=== PATIENT | male | born 1930 | race Caucasian/White ===

== ENCOUNTER 2017-11-05 19:35 | Observation (INO) ==
[2017-11-05] MEDS ORDERED: SALINE FLUSH 10ml SYRINGE IVF PRN (20:00)
--- NOTE | 2017-11-05 20:05 | Emergency Department Report ---
Weakness HPI - General Chief complaint: Weakness Stated complaint: Cough, Fever Time Seen by Provider: 11/05/17 19:42 Source: patient Mode of arrival: EMS Limitations: no limitations - History of Present Illness HPI Narrative: Pt presents with cough, fever, and weakness which started yesterday. Pt reports congestion with non productive cough. He states he sat in his recliner most of the afternoon and weakness has become progressively worse since that time. Pt arrived EMS as and daughter were concerned they could not get pt to car. Pt states he has been to weak to use his walker today. Pt denies chest pain, SOA , N/V/D. He does note a decrease in appetite. MD Complaint: generalized weakness, difficulty walking Onset (ago): hour(s) Duration: constant Location: generalized Migration: none Relieving factors: none Exacerbating factors: none Associated symptoms: fever/chills, loss of appetite, other (cough) - Related Data Home Medications Medication Instructions Recorded Confirmed Acetaminophen [Tylenol] 500 mg PO TID 11/05/17 11/05/17 Ascorbate Calcium [Vitamin C] 500 mg PO DAILY 11/05/17 11/05/17 Aspirin Chewable [ASA] 81 mg PO DAILY 11/05/17 11/05/17 Atenolol [Tenormin] 50 mg PO BID 11/05/17 11/05/17 Cetirizine [Zyrtec] 10 mg PO PRN PRN 11/05/17 11/05/17 Cholecalciferol [Vit. D-3] 2,000 unit PO DAILY 11/05/17 11/05/17 Clopidogrel [Plavix] 75 mg PO DAILY 11/05/17 11/05/17 Coenzyme Q-10 [Co Q-10] 1,000 mg PO BID 11/05/17 11/05/17 Doxazosin Mesylate [Cardura] 2 mg PO HS 11/05/17 11/05/17 Fluticasone Nasal [place] [Flonase] 1 spray EA NOSTRIL BID 11/05/17 11/05/17 Losartan [Cozaar] 50 mg PO BID 11/05/17 11/05/17 Metformin [Glucophage] 1,000 mg PO BIDWM 11/05/17 11/05/17 Nitroglycerin 0.4 mg SL PRN PRN 11/05/17 11/05/17 Ranitidine [Zantac] 150 mg PO BID 11/05/17 11/05/17 Simvastatin 20 mg PO HS 11/05/17 11/05/17 Tolterodine 2 mg [Detrol] 2 mg PO DAILY 11/05/17 11/05/17 Previous Rx's Medication Instructions Recorded Benzonatate [Tessalon Perles] 200 mg PO TID PRN #20 cap 11/06/17 Guaifenesin LA [Mucinex LA] 1,200 mg PO BID #10 tab 11/06/17 Oseltamivir Cap [Tamiflu] 75 mg PO BID #9 cap 11/06/17 Allergies Allergy/AdvReac Type Severity Reaction Status Date / Time atorvastatin Allergy Unknown Verified 11/05/17 20:05 bacitracin Allergy Unknown CAUSES Verified 11/05/17 20:05 INFLAMMATION neomycin Allergy Unknown Unverified 11/08/17 13:12 polymyxin B Allergy Unknown CAUSES Verified 11/05/17 20:05 INFLAMMATION pravastatin Allergy Unknown Verified 11/05/17 20:05 rosuvastatin Allergy Unknown Verified 11/05/17 20:05 simvastatin Allergy Unknown Verified 11/05/17 20:05 neomycin sulfate Allergy Unknown CAUSES Uncoded 01/20/16 09:04 INFLAMMATION Review of Systems All systems: reviewed and negative except as stated Constitutional: Reports: as per HPI Cardiovascular: Reports: as per HPI Respiratory: Reports: as per HPI Gastrointestinal: Reports: as per HPI Musculoskeletal: Reports: as per HPI Neurological: Reports: as per HPI [facility] Patient Stated Medical History Myocardial Infarction Yes: 2 [facility] Medical History (Last Reviewed 04/02/17 @ 09:41 by Luz High RN) HTN (hypertension) (Acute Medical) Myocardial infarction (Resolved Medical) Basal cell adenocarcinoma (Acute Medical) Hypercholesterolemia (Acute Medical) Arthritis (Chronic Medical) Diabetes mellitus (Chronic Medical) Muscle disorder (Chronic Medical) of back Surgical History: Bilateral upper blepharoplasty: 09/12/2016. Cardiac stents x 3: 2014. Back surgery x 2: 1976 & 2010. CABG: Age 68. Mitral valve repair: 1989. Cholecystectomy: mid . Cataracts, bilateral: 1994. Carpal tunnel release x 2: 1959. Appendectomy: 1941 age 10. Basal cell carcinoma, right nose , excision, 2009. Colonoscopy with polyps, 2016 Family History: Family History Mother Diabetes mellitus Father Heart disease - Social History Smoking status: Former smoker Physical Exam - Limitations Limitations: no limitations - General General appearance: alert, in no apparent distress - Normal Exams: Head:: Normocephalic without trauma Eyes:: Pupils are PERRLA w/ EOMI Neck:: Full range of motion, without adenopathy Cardiovascular:: Regular rate and rhythm, without murmur or gallop, Pulses 2+ all extremities, capillary refill, <2 seconds all extremities Abdomen:: Bowel sounds positive, soft, non-tender, non-distended Musculoskeletal:: No tenderness, or deformity noted, good range of motion, all extremities Integumentary:: No rashes Neurological:: Patient is alert, and oriented, cranial nerves, motor/sensory/ cerebellar, exams w/o gross deficits, to observation - Expanded Respiratory Exam Location: Left: decreased breath sounds, Right: wheezes, decreased breath sounds , Lower: wheezes, decreased breath sounds Course Vital Signs Pulse Rate 86 11/05/17 19:45 Blood Pressure 155/70 H 11/05/17 19:45 Pulse Oximetry 94 11/05/17 19:45 Temperature 99.6 F 11/06/17 16:00 Pulse Rate 59 L 11/06/17 16:00 Respiratory Rate 24 11/06/17 16:00 Blood Pressure 134/57 11/06/17 16:00 Pulse Oximetry 93 11/06/17 16:00 Weakness - MDM Narrative Medical decision making narrative: Labs and xray reviewed. Pt remains weak. Family voices concern that they were unable to get him out of his chair. Pt normally ambulates with a walker without difficulty. Findings and issues discussed with Dr Garcia who will admit. Plan discussed with pt and family, who are grateful for admission. - Differential Diagnosis Differential diagnosis: Likely: anemia, hypoglycemia, sepsis (influenza, syncope ) - Lab Data Attestation: I reviewed the patient's lab results. Result diagrams: 11/06/17 05:35 11/06/17 05:36 Lab Results 11/05/17 11/05/17 11/05/17 Range/Units 19:20 19:20 19:55 WBC 8.8 (4.5-11.0) T/MM3 RBC 4.42 L (4.50-5.90) M/MM3 Hgb 13.7 (13.5-17.5) GM/DL Hct 40.3 L (41-53) % MCV 91.2 (80-100) UM3 MCH 31.0 (26-34) UUG MCHC 34.0 (31-37) GM/DL RDW Std Deviation 42.1 (36.9-50.2) FL Plt Count 158 (130-400) T/MM3 MPV 10.1 (9.4-12.4) UM3 Immature Gran % (Auto) Not performed Neut % (Auto) Not performed Lymph % (Auto) Not performed [place] % (Auto) Not performed Eos % (Auto) Not performed Baso % (Auto) Not performed Neut # (Auto) Not performed Lymph # (Auto) Not performed [place] # (Auto) Not performed Eos # (Auto) Not performed Baso # (Auto) Not performed Abs Immat Gran (auto) Not performed Neutrophils % (Manual) 88.0 H (33-66) % Lymphocytes % (Manual) 5.0 L (23-45) % Reactive Lymphs % 1.0 H (0-0) % Monocytes % (Manual) 6.0 (0-9.0) % Neutrophils # (Manual) 7.7 (1.8-7.7) T/MM3 Lymphocytes # (Manual) 0.4 L (1-4.8) T/MM3 Abs React Lymphs (Man) 0.1 H (0-0) T/MM3 Monocytes # (Manual) 0.5 (0-0.8) T/MM3 RBC Morph Comment Normal Turbidity < 20 (0-20) Sodium 138 (134-144) MEQ/L Potassium 4.4 (3.6-5) MEQ/L Chloride 103 (98-107) MEQ/L Carbon Dioxide 20 L (22-30) MEQ/L Anion Gap 15 (5-15) MEQ/L BUN 17.0 (9-20) MG/DL Creatinine 0.8 (0.8-1.5) MG/DL GFR Calculation 92 BUN/Creatinine Ratio 21 (6-26) RATIO Glucose 137 H (75-110) MG/DL Calculated Osmolality 270 (261-280) MOSM/KG Calcium 9.6 (8.4-10.2) MG/DL Total Bilirubin 0.50 (0.20-1.30) MG/DL Icterus Index < 2 (0-7) AST 23 (17-59) U/L ALT 25 (21-72) U/L Alkaline Phosphatase 54 (38-126) U/L Total Protein 7.7 (6.3-8.2) G/DL Albumin 4.6 (3.5-5.0) G/DL Globulin 3.1 (2.4-3.6) G/DL Albumin/Globulin Ratio 1.5 (1.1-2.2) RATIO Plasma Lactate (0.6-2.2) MMOL/L Specimen Hemolysis < 15 (0-25) Influenza Type A (PCR) Positive A* (Negative) Influenza Type B (PCR) Negative (Negative) 11/05/17 Range/Units 21:14 WBC (4.5-11.0) T/MM3 RBC (4.50-5.90) M/MM3 Hgb (13.5-17.5) GM/DL Hct (41-53) % MCV (80-100) UM3 MCH (26-34) UUG MCHC (31-37) GM/DL RDW Std Deviation (36.9-50.2) FL Plt Count (130-400) T/MM3 MPV (9.4-12.4) UM3 Immature Gran % (Auto) Neut % (Auto) Lymph % (Auto) [place] % (Auto) Eos % (Auto) Baso % (Auto) Neut # (Auto) Lymph # (Auto) [place] # (Auto) Eos # (Auto) Baso # (Auto) Abs Immat Gran (auto) Neutrophils % (Manual) (33-66) % Lymphocytes % (Manual) (23-45) % Reactive Lymphs % (0-0) % Monocytes % (Manual) (0-9.0) % Neutrophils # (Manual) (1.8-7.7) T/MM3 Lymphocytes # (Manual) (1-4.8) T/MM3 Abs React Lymphs (Man) (0-0) T/MM3 Monocytes # (Manual) (0-0.8) T/MM3 RBC Morph Comment Turbidity (0-20) Sodium (134-144) MEQ/L Potassium (3.6-5) MEQ/L Chloride (98-107) MEQ/L Carbon Dioxide (22-30) MEQ/L Anion Gap (5-15) MEQ/L BUN (9-20) MG/DL Creatinine (0.8-1.5) MG/DL GFR Calculation BUN/Creatinine Ratio (6-26) RATIO Glucose (75-110) MG/DL Calculated Osmolality (261-280) MOSM/KG Calcium (8.4-10.2) MG/DL Total Bilirubin (0.20-1.30) MG/DL Icterus Index (0-7) AST (17-59) U/L ALT (21-72) U/L Alkaline Phosphatase (38-126) U/L Total Protein (6.3-8.2) G/DL Albumin (3.5-5.0) G/DL Globulin (2.4-3.6) G/DL Albumin/Globulin Ratio (1.1-2.2) RATIO Plasma Lactate 2.4 H (0.6-2.2) MMOL/L Specimen Hemolysis (0-25) Influenza Type A (PCR) (Negative) Influenza Type B (PCR) (Negative) - Radiology Data Attestation: I reviewed the patient's radiology results. Disposition Clinical Impression: Influenza A Disposition: 02 To [facility] Condition: Stable - Seen By: graham
[2017-11-05] MEDS ORDERED: ACETAMINOPHEN 500 MG TABLET PO PRN (21:30)
[2017-11-05] MEDS ORDERED: NITROGLYCERIN 0.4 MG SUBLINGUAL TABLET SL PRN (22:59)
[2017-11-05] MEDS ORDERED: ACETAMINOPHEN 325 MG TABLET PO PRN (23:59)
[2017-11-05] MEDS ORDERED: INSULIN ASPART 100unit/ml INJECTION SQ PRN (23:59)
[2017-11-05] MEDS ORDERED: DOCUSATE SODIUM 100 MG CAPSULE PO PRN (23:59)
[2017-11-05] MEDS ORDERED: PROMETHAZINE 25 MG INJECTION IVP PRN (23:59)
[2017-11-05] MEDS ORDERED: ONDANSETRON 4 MG/2 ML INJECTION IVP PRN (23:59)
[2017-11-06 00:24] VITALS: BMI 25.8
[2017-11-06] MEDS: LR 1,000 ML IV SCH ×2 (00:26→10:37)
--- NOTE | 2017-11-06 00:38 | History & Physical Report ---
History of Present Illness Date: 11/06/17 Chief complaint: Flu HPI: The pt is a 86 yo male who started having cough, congestion, and nausea 2 days ago. Today he slept all day and then was profoundly weak and couldn't get our of his recliner. EMS was called and he was brought to the ER for evaluation. Presently he denies any pain, SOB, CP, rash, vomiting, diarrhea, He did receive his flu shot this season. He has a walker at home which he does not use. Recently saw he manager appointment in the office last week. Review of Systems All systems PM: 10-point ROS was reviewed, no additional remarkable complaints except (what is listed in the HPI) - Constitutional Constitutional: Present: anorexia, chills, daytime sleepiness, fatigue, fever(s) , weakness - EENMT Eyes: Present: blurry vision Mouth/Throat: Present: sore throat, scratchy throat - Cardiovascular Cardiovascular: Absent: chest pain, palpitations - Respiratory Respiratory: Present: cough. Absent: dyspnea, hemoptysis - Gastrointestinal Gastrointestinal: Present: nausea. Absent: abdominal pain, diarrhea, melena Past Medical History Patient Stated Medical History Myocardial Infarction Yes: 2 Clinic Medical History (Last Reviewed 04/02/17 @ 09:41 by Luz [facility] RN) HTN (hypertension) (Acute Medical) Myocardial infarction (Resolved Medical) Basal cell adenocarcinoma (Acute Medical) Hypercholesterolemia (Acute Medical) Arthritis (Chronic Medical) Diabetes mellitus (Chronic Medical) Muscle disorder (Chronic Medical) of back Surgical History: Bilateral upper blepharoplasty: 09/12/2016. Cardiac stents x 3: 2014. Back surgery x 2: 1976 & 2010. CABG: Age 68. Mitral valve repair: 1989. Cholecystectomy: mid . Cataracts, bilateral: 1994. Carpal tunnel release x 2: 1959. Appendectomy: 194 age 10. Basal cell carcinoma, right nose , excision, 2009. Colonoscopy with polyps, 2016 Family History: Family History Mother Diabetes mellitus Father Heart disease Family History Updates: reviewed - Social History Smoking status: Former smoker Substance use type: does not use Alcohol intake frequency: does not drink Housing: house Household members: spouse Current occupational status: retired Medications Home Medications Medication Instructions Recorded Confirmed Type Acetaminophen [Tylenol] 500 mg PO TID 11/05/17 11/05/17 History Ascorbate Calcium [Vitamin C] 500 mg PO DAILY 11/05/17 11/05/17 History Aspirin Chewable [ASA] 81 mg PO DAILY 11/05/17 11/05/17 History Atenolol [Tenormin] 50 mg PO BID 11/05/17 11/05/17 History Cetirizine [Zyrtec] 10 mg PO PRN PRN 11/05/17 11/05/17 History Cholecalciferol [Vit. D-3] 2,000 unit PO DAILY 11/05/17 11/05/17 History Clopidogrel [Plavix] 75 mg PO DAILY 11/05/17 11/05/17 History Coenzyme Q-10 [Co Q-10] 1,000 mg PO BID 11/05/17 11/05/17 History Doxazosin Mesylate [Cardura] 2 mg PO HS 11/05/17 11/05/17 History Fluticasone Nasal [place] [Flonase] 1 spray EA NOSTRIL BID 11/05/17 11/05/17 History Losartan [Cozaar] 50 mg PO BID 11/05/17 11/05/17 History Metformin [Glucophage] 1,000 mg PO BIDWM 11/05/17 11/05/17 History Nitroglycerin 0.4 mg SL PRN PRN 11/05/17 11/05/17 History Ranitidine [Zantac] 150 mg PO BID 11/05/17 11/05/17 History Simvastatin 20 mg PO HS 11/05/17 11/05/17 History Tolterodine 2 mg [Detrol] 2 mg PO DAILY 11/05/17 11/05/17 History Allergies Allergy/AdvReac Type Severity Reaction Status Date / Time atorvastatin Allergy Unknown Verified 11/05/17 20:05 bacitracin Allergy Unknown CAUSES Verified 11/05/17 20:05 INFLAMMATION polymyxin B Allergy Unknown CAUSES Verified 11/05/17 20:05 INFLAMMATION pravastatin Allergy Unknown Verified 11/05/17 20:05 rosuvastatin Allergy Unknown Verified 11/05/17 20:05 simvastatin Allergy Unknown Verified 11/05/17 20:05 neomycin sulfate Allergy Unknown CAUSES Uncoded 01/20/16 09:04 INFLAMMATION Exam Vital Signs: Temperature 99.3 F 11/06/17 00:15 Pulse Rate 66 11/06/17 00:15 Respiratory Rate 20 11/06/17 00:15 Blood Pressure 118/62 11/06/17 00:15 Pulse Oximetry 98 11/05/17 23:55 Height/Weight/BMI: Height 1.8 m Weight 84.1 kg Body Mass Index 25.8 - Constitutional Present: no acute distress, well nourished - Routine HEENT Exam ENT: Present: mucous membranes moist - Routine Neck Exam Present: supple - Routine Respiratory Exam Present: CTA bilaterally. Absent: rales, respiratory distress, rhonchi - Routine Cardiovascular Exam Present: RRR, no murmur - Routine Abdominal Exam Present: soft, normoactive bowel sounds Results - Labs CBC & Chem 7: 11/06/17 05:35 11/06/17 05:36 Assessment and Plan (1) Influenza A Current visit: Yes Status: Acute (2) CAD (coronary artery disease) Current visit: Yes Status: Acute (3) Diabetes Current visit: Yes Status: Acute (4) GERD (gastroesophageal reflux disease) Current visit: Yes Status: Acute (5) Chronic back pain greater than 3 months duration Current visit: Yes Status: Acute Assessment and Plan: The pt will be started on Tamiflu 75 BID, IV fluids, PT consulted, recheck labs in am, restarted home meds, placed on insulin SS, checking CPK & LA due to weakness, DVT Prophylaxis: SCD's Resuscitation Status: Full Code - Time spent with patient Time with patient PN: 50 minutes - Physician Narrative Physician: Britany Larose MD Narrative: Date: 11/06/17 Time:0830am I have seen and examined the patient. I have reviewed the H&P above and agree. Please see my additions below.-Dr. Larose Primary care physician is Dr. Jostin Schmidt Cover Cutter is Dr. Palencia The patient's is his DPOA Per patient, he is full code CC:generalized weakness and fever HPI: The patient is a very pleasant 86-year-old male who lives at home with his independently at [facility]. He has history of heart disease and diabetes. He states he developed a cough and weakness on the evening of 11/04/2017. He states that yesterday he felt weak, had a cough, fevers and sweats. His appetite was decreased. He was able to eat a little bit of supper and then sat in his recliner. He was not able to get up out of his recliner and EMS was called. He had a fever of 102.2 in the emergency room and was positive for influenza A. He had a lactate of 2.4 indicating severe sepsis. Patient was treated with IV fluids and Tamiflu. He was admitted secondary to generalized weakness and influenza a. He has had headache off and on, especially when he coughs. He denies any neck pain. He denies any generalized achiness. He has chronic low back pain which is unchanged. He denies any chest pains, palpitations or shortness of breath. He does have a mostly dry cough. He states he felt lightheaded yesterday trying to get up out of his chair. He denies any vomiting but has felt nauseated. Has had no diarrhea. He has chronic constipation. He denies any dysuria but notices that he has not been urinating much recently. Patient was admitted last night started on Tamiflu, IV fluids and Tylenol. This morning he states he still feels very weak. His blood sugar is low. Usually has this time but did not have one last night. Past medical history is reviewed from H&P above and agree. Past surgical history is reviewed and agree. Comprehensive review of systems is negative other than the above in history of present illness Family history is reviewed and agree. Social history: The patient was a light smoker but quit "a long time ago". He rarely drinks alcohol. He lives at home with his at [facility] which is independent living. His is OA and he wants to be full code. He states he usually walks without a walker or cane. Medications and allergies are reviewed Physical exam Temperature this morning is 100.9. MAXIMUM TEMPERATURE is 102.2. O2 sat is 93% on room air. Blood pressure lying is 132/61 with a pulse of 70. Sitting blood pressure is 151/59 with a pulse of 74. Standing blood pressure is 174/76 with a pulse of 84. General: The patient is alert and oriented and in no acute distress. He is a good historian. HEENT: Pupils are equal round and reactive, sclerae anicteric, oropharynx is mildly dry Neck: Supple with good range of motion, no lymphadenopathy Chest: Coarse breath sounds anteriorly lying down, with the patient sitting up and after several coughs, lungs are clear. Cardiovascular reveals a regular rate and rhythm without murmur Abdomen: Soft, nontender, and nondistended with positive bowel sounds : No Alexandra Extremities: No clubbing, cyanosis or edema. SCDs are on. Skin: Warm and dry without rashes. Neurologic: No focal deficits, alert and oriented 3 Pertinent lab includes influenza A positive nasal swab, CBC on repeat this morning is normal other than platelets of 121 down from 158. Basic metabolic profile is essentially normal. Lactate on admission was 2.4 and with fluids improved to 1.6. CPK was normal. Liver enzymes last night were normal. Chest x-ray per radiology reveals no acute process. I have also viewed the x- ray and agree Impression Influenza A Severe sepsis-With lactate of 2.4, fever, and influenza Generalized weakness-likely secondary to severe sepsis and influenza Coronary artery disease-stable Diabetes mellitus on metformin Hypertension Chronic low back pain Plan Continue IV fluids. Continue Tamiflu which was initiated last night. PT OT eval for generalized weakness. Hold metformin secondary to recent elevated lactate. Give subcutaneous insulin if needed for hyperglycemia. Discussed with case management today. Hold parameters placed on antihypertensives encased blood pressure is low. Currently blood pressures are not low and the patient is not orthostatic. Hospital Course Summary Disclaimer: The visit summary below is not to be considered part of the above Progress Note.
[2017-11-06] MEDS ORDERED: METFORMIN 1,000 MG TABLET PO SCH (08:00)
[2017-11-06 08:09] VITALS: O2SAT 93
--- NOTE | 2017-11-06 08:40 | XRay Report ---
Indication: cough, weakness PROCEDURE: XR chest 1V: Encounter: Initial Comparison: None. Findings: The patient is status post median sternotomy and cardiac valvular surgery as well as CABG. Heart size is normal. The lungs are clear. There is no focal opacity to suggest atelectasis or pneumonia. No mediastinal or hilar adenopathy. No pleural effusion. There is no significant tortuosity of the descending thoracic aorta. There is no significant degenerative changes of the thoracic spine. IMPRESSION: No acute process. .
[2017-11-06] MEDS ORDERED: FLUTICASONE NASAL SPRAY 50mcg EA NOSTRIL SCH (09:00)
[2017-11-06] MEDS ORDERED: ATENOLOL 50 MG TABLET PO SCH (09:00)
[2017-11-06] MEDS ORDERED: LOSARTAN 50 MG TABLET PO SCH (09:00)
[2017-11-06] MEDS ORDERED: RANITIDINE 150 MG TABLET PO SCH (09:00)
[2017-11-06] MEDS ORDERED: CLOPIDOGREL 75 MG TABLET PO SCH (09:00)
[2017-11-06] MEDS ORDERED: ASPIRIN 81 MG CHEWABLE TABLET PO SCH (09:00)
[2017-11-06] MEDS ORDERED: BENZONATATE 200 MG CAPSULE PO SCH (15:00)
--- NOTE | 2017-11-06 15:46 | Discharge Summary ---
Discharge Information Date of admission: 11/05/17 23:46 Attending Physician: Britany Larose MD Primary care physician: Jostin Schmidt MD Consults: 11/06/17 IRU Screening [Inpatient Rehab Screening] [CONS] Routine - Discharge Diagnosis (1) Influenza A Status: Acute (2) CAD (coronary artery disease) Status: Acute (3) Diabetes Status: Acute (4) GERD (gastroesophageal reflux disease) Status: Acute (5) Chronic back pain greater than 3 months duration Status: Acute Influenza a Severe sepsis Generalized weakness Diabetes mellitus - Laboratory Labs: 11/06/17 05:35 11/06/17 05:36 Lactate on admission was 2.4 and improved to 1.6 after hydration - Radiology Radiology: Chest x-ray showed no acute process. History of Present Illness HPI: The pt is a 86 yo male who started having cough, congestion, and nausea 2 days ago. Today he slept all day and then was profoundly weak and couldn't get our of his recliner. EMS was called and he was brought to the ER for evaluation. Presently he denies any pain, SOB, CP, rash, vomiting, diarrhea, He did receive his flu shot this season. He has a walker at home which he does not use. Recently saw he coremaker in the office last week. Objective Vital signs: Temperature 100.9 F H 11/06/17 08:00 Pulse Rate 83 11/06/17 08:36 Respiratory Rate 20 11/06/17 08:00 Blood Pressure 174/76 H 11/06/17 08:36 Pulse Oximetry 93 11/06/17 08:00 Height/Weight/BMI: Height 1.8 m Weight 86.2 kg Body Mass Index 25.8 Hospital Course This is a general summary of the patient's hospital course. For more details refer to the complete medical record. Hospital course: The patient is a very pleasant 86-year-old male who lives at home with his independently at [facility]. He has history of heart disease and diabetes. He states he developed a cough and weakness on the evening of 11/04/2017. He states that yesterday he felt weak, had a cough, fevers and sweats. His appetite was decreased. He was able to eat a little bit of supper and then sat in his recliner. He was not able to get up out of his recliner and EMS was called. He had a fever of 102.2 in the emergency room and was positive for influenza A. He had a lactate of 2.4 indicating severe sepsis. Patient was treated with IV fluids and Tamiflu. He was admitted secondary to generalized weakness and influenza a. He has had headache off and on, especially when he coughs. He denies any neck pain. He denies any generalized achiness. He has chronic low back pain which is unchanged. He denies any chest pains, palpitations or shortness of breath. He does have a mostly dry cough. He states he felt lightheaded yesterday trying to get up out of his chair. He denies any vomiting but has felt nauseated. Has had no diarrhea. He has chronic constipation. He denies any dysuria but notices that he has not been urinating much recently. Patient was admitted last night started on Tamiflu, IV fluids and Tylenol. This morning he states he still feels very weak. His blood sugar is low. Usually has this time but did not have one last night. Examination Temperature this morning is 100.9. MAXIMUM TEMPERATURE is 102.2. O2 sat is 93% on room air. Blood pressure lying is 132/61 with a pulse of 70. Sitting blood pressure is 151/59 with a pulse of 74. Standing blood pressure is 174/76 with a pulse of 84. General: The patient is alert and oriented and in no acute distress. He is a good historian. HEENT: Pupils are equal round and reactive, sclerae anicteric, oropharynx is mildly dry Neck: Supple with good range of motion, no lymphadenopathy Chest: Coarse breath sounds anteriorly lying down, with the patient sitting up and after several coughs, lungs are clear. Cardiovascular reveals a regular rate and rhythm without murmur Abdomen: Soft, nontender, and nondistended with positive bowel sounds : No Alexandra Extremities: No clubbing, cyanosis or edema. SCDs are on. Skin: Warm and dry without rashes. Neurologic: No focal deficits, alert and oriented 3 Pertinent lab includes influenza A positive nasal swab, CBC on repeat this morning is normal other than platelets of 121 down from 158. Basic metabolic profile is essentially normal. Lactate on admission was 2.4 and with fluids improved to 1.6. CPK was normal. Liver enzymes last night were normal. Chest x-ray per radiology reveals no acute process. I have also viewed the x- ray and agree Impression Influenza A Severe sepsis-With lactate of 2.4, fever, and influenza Generalized weakness-likely secondary to severe sepsis and influenza Coronary artery disease-stable Diabetes mellitus on metformin Hypertension Chronic low back pain Plan Continue IV fluids. Continue Tamiflu which was initiated last night. PT OT eval for generalized weakness. Hold metformin secondary to recent elevated lactate. Give subcutaneous insulin if needed for hyperglycemia. Discussed with case management today. Hold parameters placed on antihypertensives encased blood pressure is low. Currently blood pressures are not low and the patient is not orthostatic. 11/06/2017-3:45 PM The patient was reevaluated this afternoon. He has been eating and drinking well. He walked this morning with physical therapy and occupational therapy, and both therapists thought he was stable for dismissal to home with home health. This afternoon, he walked with his nurse and did well. He is feeling stronger today and feels ready for dismissal to home. He continues to have some cough and intermittent fever. He is able to keep down his medications. His is here and also agrees that he is doing well enough to go home. He will be dismissed to home with home health. He does have a walker at home already. I've asked him to follow-up with Dr. Schmidt in 1 week. Resuscitation Status: Full Code Discharge Plan - Discharge Disposition Discharge Date: 11/06/17 Disposition: 86 Home Health Service *Condition: Stable Reason For Visit (Visit label in EMR): weakness due to Flu - Discharge Medications *Discharge Medications: New Gu[place]ifenesin LA [Mucinex LA] 1,200 mg PO BID #10 tab Benzonatate [Tessalon Perles] 200 mg PO TID PRN #20 cap PRN Reason: Cough Oseltamivir Cap [Tamiflu] 75 mg PO BID #9 cap Continue Ascorbate Calcium [Vitamin C] 500 mg PO DAILY Coenzyme Q-10 [Co Q-10] 1,000 mg PO BID Acetaminophen [Tylenol] 500 mg PO TID Tolterodine 2 mg [Detrol] 2 mg PO DAILY Aspirin Chewable [ASA] 81 mg PO DAILY Simvastatin 20 mg PO HS Ranitidine [Zantac] 150 mg PO BID Nitroglycerin 0.4 mg SL PRN PRN PRN Reason: Chest Pain Metformin [Glucophage] 1,000 mg PO BIDWM Fluticasone Nasal Sunflower [Flonase] 1 spray EA NOSTRIL BID Doxazosin Mesylate [Cardura] 2 mg PO HS Clopidogrel [Plavix] 75 mg PO DAILY Atenolol [Tenormin] 50 mg PO BID Cetirizine [Zyrtec] 10 mg PO PRN PRN PRN Reason: Allergy Symptoms Cholecalciferol [Vit. D-3] 2,000 unit PO DAILY Losartan [Cozaar] 50 mg PO BID - Discharge Packet/Instructions *Diet: diabetic diet as tolerared *Activity: up with walker. Light activity as tolerated *Pain Management/Treatment: Tylenol/acetaminophen as needed *Wound Care: Not applicable Additional Instructions: Restart metformin on Saturday as long as you are not nauseated or vomiting. *Expected Signs/Symptoms: Your fatigue, fever and cough should gradually improve *Notify Physician if: Call 911 if you have severe weakness, shortness of breath , chest pain, or confusion, or any other severe symptoms. Call your doctor if you have nausea, increased fatigue, worsening cough, or worsening fevers. *During Business Hours Contact: Call Dr. Schmidt's office *After Business Hours Contact: Call [phone] and asked to page Dr[address] Schmidt *Pending Lab/Results: No Pending Lab - Referrals/Follow Up *Referrals/Follow Up: Jostin Schmidt MD [Family Provider] - 1 Week - Patient Handouts - Dismissal Complete Discharge Instructions are:: Complete Physician Narrative - Narrative Attestation Narrative: Date: 11/06/17 Time: 1602
[2017-11-06 16:12] VITALS: BP 134/57; PULSE 59; RESP 24; TEMP 99.6
[2017-11-06] MEDS ORDERED: DOXAZOSIN 2 MG TABLET PO SCH (21:00)
[2017-11-06] MEDS ORDERED: GUAIFENESIN LA 600 MG TABLET PO SCH (21:00)
== END 2017-11-06 17:22 | disposition home health service (06) ==
LOC: ED 19:35 → MED 19:35 → SUATTDRO 23:46 → MED 23:55
PROVIDERS: ADMIT Internal Medicine; ATTEND Internal Medicine